=== PATIENT | male | born 1975 | race Caucasian/White ===

== ENCOUNTER → 2023-06-15 13:45 | Outpatient (REF) | payer OTHER, SELFPAY | LOC: HWRAD 13:45 | PROVIDERS: ATTENDING PHYSICIAN Specialist; FAMILY PHYSICIAN Nurse Practitioner Family | DX: N20.0 Calculus of kidney (principal) | CPT/HCPCS: 74018 ==

== ENCOUNTER → 2023-07-26 06:33 | Day surgery (SDC) | payer OTHER, SELFPAY | LOC: GI 06:33 | PROVIDERS: ATTENDING PHYSICIAN Internal Medicine | DX: R10.32 Left lower quadrant pain (principal); T18.4XXA Foreign body in colon, initial encounter; W44.9XXA Unspecified foreign body entering into or through a natural orifice, initial encounter; K63.5 Polyp of colon | CPT/HCPCS: 45380; 45379; 88305 ==

== ENCOUNTER 2023-08-05 06:03 | Day surgery (SDC) | payer OTHER, SELFPAY ==
[2023-08-05] VITALS (7 sets, daily range): BP systolic 107–144; BP diastolic 74–88; BMI 26.1
[2023-08-05] MEDS: NORMOSOL-R 1000 IV (08:29)
[2023-08-05] MEDS: FLOMAX 0.400000000000000022 MG PO (12:45)
[2023-08-05] MEDS: Pyridium 200 MG PO (12:45)
[2023-08-09 13:11] LABS: Stone Analysis Mass 41 mg
== END 2023-08-05 13:48 | disposition home or self-care (01) ==
LOC: SDS 06:03
PROVIDERS: ATTENDING PHYSICIAN Specialist; FAMILY PHYSICIAN Nurse Practitioner Family
DX: N20.0 Calculus of kidney (principal); Z87.448 Personal history of other diseases of urinary system
CPT/HCPCS: 52356; 74420; 76000; 82365; 93005; C1758; C1894; C2617